=== PATIENT | male | born 1985 | race Caucasian/White ===

== ENCOUNTER 2016-10-21 02:58 | Emergency (ER) | payer OTHER | END 2016-10-21 04:37 | disposition other institution (70) | LOC: ED 02:58 | DX: Z02.89 Encounter for other administrative examinations (principal) ==

== ENCOUNTER 2016-10-21 02:58 | Emergency (ER) | payer SELFPAY ==
[2016-10-21 04:37] VITALS: BP 146/96
== END 2016-10-21 04:37 | disposition other institution (70) ==
LOC: ED 02:58 → EDSEX 02:58 → ED 04:37
DX: Z04.1 Encounter for examination and observation following transport accident (principal)